=== PATIENT | female | born 1965 | race Caucasian/White ===

== ENCOUNTER 2022-06-02 13:53 | Outpatient (CLI) | payer OTHER, SELFPAY ==
--- NOTE | ~2022-06-02 | XR_ITS ---
EXAMINATION: XR chest 2V 06/02/2022 14:13 INDICATION: Hemoptysis PROCEDURE: 2 view chest COMPARISON: 02/15/2019 FINDINGS: The lungs are clear. The cardiomediastinal silhouette is within normal limits. There are no pleural effusions. There is no pneumothorax suspected. There is scoliosis. IMPRESSION: 1: NO ACUTE CARDIOPULMONARY DISEASE. Reviewed, dictated and finalized at location A.
== END 2022-06-02 13:54 | disposition home or self-care (01) ==
PROVIDERS: PCP Family Medicine; Visit Provider Family Medicine
DX: R04.2 Hemoptysis (principal)
CPT/HCPCS: 71046

== ENCOUNTER 2023-08-30 10:15 | Outpatient (CLI) | payer OTHER, SELFPAY ==
--- NOTE | ~2023-08-30 | XR_ITS ---
EXAMINATION: XR chest 2V DATE: 08/30/2023 10:34 INDICATION: Cough. TECHNIQUE: Frontal and lateral views of the chest were obtained. COMPARISON: Chest 2 views 06/02/2022, chest CT 11/09/2018 FINDINGS: There is no pneumonia, pleural effusion, or pneumothorax. The heart size is normal. IMPRESSION: 1. No acute cardiopulmonary disease. Reviewed, dictated and finalized at location A.
== END 2023-08-30 10:16 | disposition home or self-care (01) ==
PROVIDERS: PCP Family Medicine; Visit Provider Nurse Practitioner Family
DX: R05.9 Cough, unspecified (principal)
CPT/HCPCS: 71046

== ENCOUNTER 2024-03-28 20:28 | Emergency (ER) | payer OTHER, SELFPAY ==
--- NOTE | ~2024-03-28 | XR_ITS ---
HISTORY: fall, pain COMPARISON: None TECHNIQUE: 3 views of the right shoulder were performed FINDINGS: Acute comminuted fracture involving the right humeral head and neck is demonstrated. Degenerative disease within the acromioclavicular joint space with narrowing and osteophyte formation . The shoulder appears fixed in internal rotation, as no external rotation view is present. IMPRESSION: Acute comminuted fracture involving the right humeral head and neck with possible posterior dislocati on is suspected Reviewed, dictated and finalized at location A. CTOR ASSET IMPRESSION: Acute comminuted fracture involving the right humeral head and neck with possib le posterior dislocation is suspected
[2024-03-28 20:38] VITALS: BP 176/90; PULSE 69; RESP 20; TEMP 36.4; O2SAT 100
[2024-03-28] MEDS: IBUPROFEN 600 MG TABLET PO (21:54)
--- NOTE | 2024-03-28 22:02 | ED_ITS ---
HPI - Extremity Injury (Upper) General Chief Complaint: Extremity Injury, Upper Stated Complaint: right shoulder injury Time Seen by Provider: 03/28/24 21:23 Source: patient Mode of arrival: ambulatory Limitations: no limitations History of Present Illness HPI narrative: This is a 59 year old female that presents to the ER for right shoulder injury. Reports she tripped and fell and landed on her right shoulder. Reports decreased ROM and pain in the right shoulder since. She did not hit her head or lose consciousness. Denies numbness. Related Data Allergies Allergy/AdvReac Type Severity Reaction Status Date / Time levofloxacin (From Levaquin) Allergy Severe Hives Verified 06/20/19 09:57 Review of Systems Review of Systems: CONSTITUTIONAL: Denies fever MUSCULOSKELETAL: Reports joint pain, and myalgia. NEUROLOGIC: Denies numbness, or weakness. All systems reviewed & are unremarkable except as noted in HPI and below PMFSH Past Medical History Medical History (Updated 03/28/24 @ 22:43 by Danyelle Melvin PA-C) Essential hypertension Recurrent infection of skin Family History Family History Mother Family history of malignant neoplasm of brain Social History Social History (Updated 03/24/22 @ 08:06 by Simone Teresa MD) Smoking status: Former smoker Alcohol intake: current Substance use: never Exam Narrative: GENERAL: Well-appearing, well-nourished, and in no acute distress. HEAD: Normocephalic, atraumatic. EYES: EOMI. CHEST: No respiratory distress. HEART: Regular rate EXTREMITIES: Decreased active ROM in the right shoulder with swelling noted proximally. Normal radial pulse. Normal sensation. No obvious deformity SKIN: Warm, dry, no rash. NEURO: No focal deficits. Alert and oriented x3. PSYCH: Normal mood and affect Course Course Emergency Course: patient updated on her workup and agrees with plan of care Consultations Consultation #1: Spoke with Dr. Meyer about patient and workup. No obvious dislocation is seen on x-ray Vital Signs Vital signs: Vital Signs Temperature 97.5 F L 03/28/24 20:38 Pulse Rate 69 03/28/24 20:38 Respiratory Rate 20 03/28/24 20:38 Blood Pressure 176/90 H 03/28/24 20:38 Pulse Oximetry 100 03/28/24 20:38 Oxygen Delivery Room Air 03/28/24 20:38 Temperature 97.5 F L 03/28/24 20:38 Pulse Rate 70 03/28/24 22:58 Respiratory Rate 19 03/28/24 22:58 Blood Pressure 152/87 H 03/28/24 22:58 Pulse Oximetry 100 03/28/24 22:58 Oxygen Delivery Room Air 03/28/24 20:38 Procedures Orthopedic Splinting/Casting Injury #1: Splinting/Casting Date: 03/28/24 Side: right Upper Extremity Injury Location: shoulder Upper Extremity Immobilizer: sling/shoulder immobilizer Splint: prefabricated Pre-Formed: sling Pre-Procedure Neuro Vascular Exam: normal Post-Procedure Neuro Vascular Exam: normal MDM - Extremity Injury (Upper) MDM Narrative Medical decision making narrative: Patient presents to the ER for right shoulder pain after tripping and falling onto the shoulder. She is neurovascularly intact. Right shoulder x-ray showing acute comminuted fracture of the right humeral head and neck. Initial concern for a possible posterior dislocation. On exam patient does not appear dislocated. Addendum was added to radiology report. Patient placed in sling and will follow up with orthopedics. She was given warnings to return to the ER Differential Diagnosis Differential diagnosis: Likely dislocation of shoulder and other (shoulder fracture) Imaging Data Radiologist's impression: ITS Impressions Shoulder X-Ray 03/28/24 21:12 IMPRESSION: Acute comminuted fracture involving the right humeral head and neck with possible posterior dislocation is suspected ADDENDUM: 03/28/24 [id number] HISTORY: fall, pain COMPARISON: None TECHNIQUE: 3 views of the right shoulder were performed FINDINGS: Acute comminuted fracture involving the right humeral head and neck is demonstrated. Degenerative disease within the acromioclavicular joint space with narrowing and osteophyte formation. The shoulder appears fixed in internal rotation, as no external rotation view is present. No axillary view is submitted. IMPRESSION: Acute comminuted fracture involving the right humeral head and neck, as detailed above. Critical Care Time Critical Care Time Critical Care Time: No Discharge Plan Discharge Clinical Impression: Fracture of head of humerus Qualifiers: Encounter type: initial encounter Fracture type: closed Laterality: right Qualified Code(s): S42.291A - Other displaced fracture of upper end of right h umerus, initial encounter for closed fracture Patient Disposition: Home, Self-Care Condition: Stable Instructions: Proximal Humerus Fracture (ED) Additional Instructions: Return to the ER if you experience fever, redness and swelling of your arm, numbness, or any other symptoms that are concerning to you Rest, wear sling, use ice, take anti-inflammatories (Aleve, Ibuprofen, Naproxen, etc) or Tylenol as needed for pain as well as prescribed pain medication as needed Follow up with orthopedics Patient Language: Romansh Prescriptions: New hydrocodone-acetaminophen 5-325 mg tablet 1 tablet PO Q6H PRN (Reason: pain) Qty: 20 0RF ondansetron 4 mg tablet,disintegrating 4 mg PO Q8H PRN (Reason: nausea and vomiting) Qty: 10 0RF No Action albuterol sulfate [ProAir HFA] 90 mcg/actuation HFA aerosol inhaler 1 inh inhalation Q4H PRN (Reason: shortness of breath or wheezing) Qty: 6.7 3RF tretinoin 0.05 % cream 1 applic TOPICAL ONCE Qty: 45 3RF [place] Thyroid 90 mg tablet 90 mg PO DAILY Qty: 90 1RF hydrochlorothiazide 25 mg tablet 25 mg PO DAILY Qty: 30 2RF vilazodone 40 mg tablet See Rx Instructions .ROUTE .COMPLEX Qty: 90 0RF Dose Instruction: TAKE 1 TABLET BY MOUTH DAILY Rx Instructions: TAKE 1 TABLET BY MOUTH DAILY nitrofurantoin macrocrystal 100 mg capsule 100 mg PO Q12H Qty: 14 0RF Rx Instructions: must administer with a meal/food dextroamphetamine-amphetamine [Adderall] 20 mg tablet 20 mg PO BID Qty: 60 0RF Follow-up/Referrals: Humberto Meyer MD [Physician] - Simone Teresa MD [Primary Care Provider] -
[2024-03-28 22:58] VITALS: BP 152/87; PULSE 70; RESP 19; O2SAT 100
== END 2024-03-28 23:00 | disposition home or self-care (01) ==
PROVIDERS: Emergency Provider Physician Assistant; PCP Family Medicine
DX: S49.91XA Unspecified injury of right shoulder and upper arm, initial encounter (principal); W18.30XA Fall on same level, unspecified, initial encounter; I10 Essential (primary) hypertension; Z87.891 Personal history of nicotine dependence
CPT/HCPCS: 73030; 99284; A4565; A9270

== ENCOUNTER 2024-04-04 12:46 | Outpatient (CLI) | payer OTHER, SELFPAY ==
--- NOTE | ~2024-04-04 | XR_ITS ---
EXAMINATION: XR forearm RT 2V DATE: 04/04/2024 13:04 INDICATION: Right forearm pain. TECHNIQUE: 2 views of right forearm were obtained. COMPARISON: None. FINDINGS: Alignment is normal. No fracture. 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 No elbow joint effusion. IMPRESSION: 1. No fracture. Reviewed, dictated and finalized at location A. EPRENEUR IMPRESSION: 1. No fracture.
== END 2024-04-04 12:47 | disposition home or self-care (01) ==
PROVIDERS: PCP Family Medicine; Visit Provider Family Medicine
DX: M79.631 Pain in right forearm (principal)
CPT/HCPCS: 73090